=== PATIENT | female | born 1995 | race Caucasian/White ===

== ENCOUNTER 2017-03-12 10:20 | Emergency (ER) | payer SELFPAY ==
[~2017-03-12] VITALS: Ht 175.3 cm; Wt 54.0 kg
[2017-03-12 10:26] VITALS: BP 136/76
== END 2017-03-12 11:11 | disposition home or self-care (01) ==
LOC: ED 11:05
DX: L03.116 Cellulitis of left lower limb (principal); L03.115 Cellulitis of right lower limb
CPT/HCPCS: 99283

== ENCOUNTER 2020-08-19 23:22 | Emergency (ER) | payer MEDICAID ==
[~2020-08-19] VITALS: Ht 185.4 cm; Wt 57.3 kg
[2020-08-19 23:26] VITALS: BP 121/60
--- NOTE | 2020-08-20 01:00 | NUR ---
ATTEMPT TO CALL PT FROM LOBBY TO TRIAGE FOR PIT, NOT IN LOBBY
--- NOTE | 2020-08-20 02:41 | NUR ---
[facility] IN [facility] SAW PT TO ASSESS
== END 2020-08-20 03:01 | disposition home or self-care (01) ==
LOC: ED 08-20 02:30
DX: L03.115 Cellulitis of right lower limb (principal)
CPT/HCPCS: 99283

== ENCOUNTER 2021-04-13 17:40 | Emergency (ER) | payer MEDICAID ==
[~2021-04-13] VITALS: Ht 185.4 cm; Wt 52.7 kg
[2021-04-13 17:51] VITALS: BP 107/63
--- NOTE | 2021-04-13 17:51 | NUR ---
FIRST CONTACT: LEFT buttocks abscess x 3 days. PT TO BED WITH STEADY GAIT. POSTIONED TO COMFORT IN BED. ATTACHED TO MONITORS. VSS. NADN. AWAITING ORDERS.
[2021-04-13] MEDS ORDERED: IBUPROFEN 600 MG TABLET ONE (18:14)
[2021-04-13] MEDS ORDERED: DIPH,PERTUSS(ACELL),TET VAC/PF 0.5 ML IM-VACC ONE (18:30)
[2021-04-13] MEDS ORDERED: IBUPROFEN 600 MG TABLET PO ONE (18:30)
--- NOTE | 2021-04-13 18:34 | NUR ---
Patient given discharge instructions and they have confirmed that they understand the instructions. Patient ambulatory with steady gait. NAD, all questions answered appropriately, denies additional needs at this time. No personal belongings left in room after discharge.
== END 2021-04-13 18:39 | disposition home or self-care (01) ==
LOC: ED 18:20
DX: L03.317 Cellulitis of buttock (principal); F17.200 Nicotine dependence, unspecified, uncomplicated
CPT/HCPCS: 90471; 90715; 99284